=== PATIENT | female | born 1995 | race Caucasian/White ===

== ENCOUNTER 2017-05-30 22:11 | Emergency (ER) | payer SELFPAY ==
[~2017-05-30] VITALS: Ht 152.4 cm; Wt 106.0 kg
[2017-05-31] MEDS ORDERED: HYDROCODONE/ACETAMINOPHEN 10/325MG TABLET PO ONE
[2017-05-31 05:56] VITALS: BP 126/78
== END 2017-05-31 06:04 | disposition home or self-care (01) ==
LOC: ER 22:40
DX: S82.51XA Displaced fracture of medial malleolus of right tibia, initial encounter for closed fracture (principal); W01.0XXA Fall on same level from slipping, tripping and stumbling without subsequent striking against object, initial encounter; Y93.89 Activity, other specified; Y92.89 Other specified places as the place of occurrence of the external cause
CPT/HCPCS: 29505; 73590; 73610; 81025; 99284